=== PATIENT | female | born 1985 | race African-American/Black ===

== ENCOUNTER 2019-01-06 20:32 | Inpatient (IN) ==
[2019-01-06 23:30] LABS: Basophils # 0.1 10*3/uL (0.0-0.2); Basophils % 0.7 % (0.0-0.8); Eosinophils # 0.6 10*3/uL (0.0-0.87); Hematocrit 32.3 VOL% (35.7-47.0); Hemoglobin 9.9 GM/DL (12.0-16.0); Immature Granulocytes % 0.6 %; Immature Granulocytes Absolute 0.07 #; Lymphocytes # 2.3 10*3/uL (1.4-4.0); Lymphocytes % 18.5 % (21.3-54.2); Mean Corpuscular HGB Conc 30.7 GM/DL (32-36); Mean Corpuscular Volume 104.2 FL (87-102); Monocytes % 6.1 % (1.7-12.7); Neutrophils % 69.1 % (38.7-73.9); Platelet Count 403 T/CUMM (130-400); Red Cell Distribution Width 15.9 % (9.3-17.3); White Blood Count 12.3 T/CUMM (4-12)
[2019-01-06 23:52] LABS: Alanine Aminotransferase 11 U/L (13-56); Albumin 3.3 G/DL (3.4-5.0); Alkaline Phosphatase 94 U/L (45-117); Aspartate Amino Transferase 10 U/L (0-37); Bilirubin,Total < 0.39 MG/DL (0.2-1.0); Blood Urea Nitrogen 85 MG/DL (7-18); Glucose 157 MG/DL (74-106); Osmolality,Calculated 296.2 MOS/KG (273-304); Total Protein 8.3 G/DL (6.4-8.3)
[2019-01-07] MEDS ORDERED: CALCIUM CHLORIDE 1,000 MG/10 ML SYRINGE IV STA (00:20)
[2019-01-07] MEDS ORDERED: SODIUM POLYSTYRENE SULFATE 15 GM/60 ML BOTTLE PO STA (00:21)
[2019-01-07] MEDS ORDERED: ONDANSETRON 4 MG/2 ML VIAL IV PRN ×2 (01:05→01:09)
[2019-01-07] MEDS ORDERED: ACETAMINOPHEN 325 MG TABLET PO PRN (01:05)
[2019-01-07] MEDS ORDERED: DEXTROSE 50% 25 GM/50 ML VIAL IV STA (01:09)
[2019-01-07] MEDS ORDERED: INSULIN REGULAR 100 UNIT/ML SUBCUT ONE (01:09)
[2019-01-07] MEDS ORDERED: SODIUM BICARB INJ 50 MEQ in DEXTROSE 5% 1,000 ML IV SCH (01:30)
[2019-01-07] MEDS ORDERED: SODIUM BICARBONATE 10 MEQ/10 ML SYRINGE IV ONE (01:42)
[2019-01-07 02:44] LABS: Basophils # 0.1 10*3/uL (0.0-0.2); Basophils % 0.8 % (0.0-0.8); Eosinophils # 0.5 10*3/uL (0.0-0.87); Hematocrit 32.4 VOL% (35.7-47.0); Hemoglobin 9.5 GM/DL (12.0-16.0); Immature Granulocytes % 0.6 %; Immature Granulocytes Absolute 0.06 #; Lymphocytes # 2.1 10*3/uL (1.4-4.0); Mean Corpuscular HGB Conc 29.3 GM/DL (32-36); Mean Corpuscular Volume 106.2 FL (87-102); Mean Platelet Volume 10.5 FL (9.6-12.0); Monocytes % 6.5 % (1.7-12.7); Neutrophils % 67.1 % (38.7-73.9); Platelet Count 304 T/CUMM (130-400); Red Blood Count 3.05 MC/CUMM (3.8-5.5); White Blood Count 10.3 T/CUMM (4-12)
[2019-01-07 04:03] LABS: Band Neutrophils 3 % (0-10); Eosinophils 4 % (0-10); Lymphocytes 18 % (20-55); Segmented Neutrophils 69 % (50-85); Total Cells Counted 100
[2019-01-07 04:04] LABS: Anisocytosis 1+; Platelet Estimate Adequate
[2019-01-07 04:08] LABS: Hepatitis B Core IgM Quant 0.13 Index; Hepatitis B Surface Ag Quant < 0.10 Index; Hepatitis B Surface Ag Result Negative (Negative); Hepatitis C Virus Ab Quant 0.13 Index; Hepatitis C Virus Ab Result Negative (Negative)
[2019-01-07] MEDS: PANTOPRAZOLE 40 MG TABLET PO SCH (08:49)
[2019-01-07] MEDS ORDERED: PANTOPRAZOLE 40 MG TABLET PO SCH (09:00)
[2019-01-07] MEDS ORDERED: CYCLOBENZAPRINE 10 MG TABLET PO PRN (10:06)
[2019-01-07] MEDS: CALCIUM (CARBONATE)/VITAMIN D 600 MG-400 UNIT TABLET PO SCH (10:59)
[2019-01-07] MEDS: levETIRAcetam 250 MG TABLET PO SCH ×2 (10:59→20:50)
[2019-01-07] MEDS: DORZOLAMIDE/TIMOLOL OPH SOLN 10 ML BOTTLE BOTH EYES SCH ×2 (11:00→22:11)
[2019-01-07] MEDS: CLOPIDOGREL 75 MG TABLET PO SCH (11:00)
[2019-01-07] MEDS: CARVEDILOL 12.5 MG TABLET PO SCH ×2 (11:00→20:49)
[2019-01-07] MEDS: DICLOFENAC 1% GEL 100 GM TUBE TOP SCH ×3 (13:53→20:51)
[2019-01-07] MEDS: GABAPENTIN 300 MG CAPSULE PO SCH ×2 (14:54→20:48)
[2019-01-07] MEDS: SEVELAMER CARBONATE 800 MG TABLET PO SCH ×2 (14:54→20:48)
[2019-01-07] MEDS: BRIMONIDINE/TIMOLOL OPH SOLN 5 ML BOTTLE BOTH EYES SCH ×2 (15:45→22:11)
[2019-01-07] MEDS ORDERED: ATORVASTATIN 40 MG TABLET PO SCH (21:00)
[2019-01-08 06:33] LABS: Basophils # 0.1 10*3/uL (0.0-0.2); Basophils % 0.9 % (0.0-0.8); Eosinophils # 0.6 10*3/uL (0.0-0.87); Hematocrit 30.9 VOL% (35.7-47.0); Hemoglobin 9.7 GM/DL (12.0-16.0); Immature Granulocytes % 0.6 %; Immature Granulocytes Absolute 0.05 #; Lymphocytes # 2.2 10*3/uL (1.4-4.0); Lymphocytes % 24.7 % (21.3-54.2); Mean Corpuscular HGB Conc 31.4 GM/DL (32-36); Mean Corpuscular Volume 101.6 FL (87-102); Mean Platelet Volume 9.8 FL (9.6-12.0); Monocytes % 7.7 % (1.7-12.7); Neutrophils % 59.1 % (38.7-73.9); Platelet Count 363 T/CUMM (130-400); Red Blood Count 3.04 MC/CUMM (3.8-5.5); Red Cell Distribution Width 15.8 % (9.3-17.3); White Blood Count 8.8 T/CUMM (4-12)
[2019-01-08 06:52] LABS: Troponin I < 0.015 NG/ML (0.00-0.045)
[2019-01-08 06:57] LABS: Calcium 8.2 MG/DL (8.5-10.1); Osmolality,Calculated 284.4 MOS/KG (273-304)
[2019-01-08] MEDS: SEVELAMER CARBONATE 800 MG TABLET PO SCH ×2 (08:00→15:00)
[2019-01-08] MEDS: GABAPENTIN 300 MG CAPSULE PO SCH ×2 (08:00→15:00)
[2019-01-08] MEDS: levETIRAcetam 250 MG TABLET PO SCH (08:01)
[2019-01-08] MEDS: CALCIUM (CARBONATE)/VITAMIN D 600 MG-400 UNIT TABLET PO SCH (08:01)
[2019-01-08] MEDS: CLOPIDOGREL 75 MG TABLET PO SCH (08:01)
[2019-01-08] MEDS: CARVEDILOL 12.5 MG TABLET PO SCH (08:01)
[2019-01-08] MEDS: PANTOPRAZOLE 40 MG TABLET PO SCH (08:01)
[2019-01-08] MEDS: DICLOFENAC 1% GEL 100 GM TUBE TOP SCH ×2 (08:02→13:07)
[2019-01-08] MEDS: DORZOLAMIDE/TIMOLOL OPH SOLN 10 ML BOTTLE BOTH EYES SCH (08:02)
[2019-01-08] MEDS: BRIMONIDINE/TIMOLOL OPH SOLN 5 ML BOTTLE BOTH EYES SCH ×2 (08:02→15:00)
[2019-01-08 08:46] VITALS: BP 139/101
[2019-01-08] MEDS ORDERED: ASPIRIN EC 81 MG TABLET PO SCH (09:00)
[2019-01-08] MEDS ORDERED: ESCITALOPRAM 10 MG TABLET PO SCH (09:00)
== END 2019-01-08 15:25 | disposition home health service (06) | DRG 640 ==
LOC: N.EDINP 20:32 → N.ED 20:32 → SUATTDRO 01-07 01:05 → N.ICU 01-07 01:53 → SUPCPDRO 01-07 10:04
PROVIDERS: ADMIT Internal Medicine; ATTEND Internal Medicine